=== PATIENT | male | born 1965 | race African-American/Black ===

== ENCOUNTER 2018-06-26 05:35 | Day surgery (SDC) | payer OTHER ==
[~2018-06-26] VITALS: Ht 182.9 cm; Wt 103.4 kg
[~2018-06-26 05:35] MED LIST: ADDERALL 15 MG15 MG PO; ALEVE220 MG PO; PROBIOTIC1 EAC1 PO; VITAMIN D1000 UNI1 PO
[2018-06-26 09:53] VITALS: BP 122/99
[2018-06-26 13:02] VITALS: BP 122/99
--- NOTE | 2018-06-27 06:37 | O ---
[address] [address] OPERATIVE REPORT Name: CARRIONGHADA Room #: DEP [facility].#: [id number] Admission: 06/26/18 ������������������ Attend Phys: Amado Russell MD Discharge: 06/26/18 ������������������ Date of : 67 Report #: [id number] THIS REPORT FOR: //name// CC: Ninoska Russell DATE OF SERVICE: 06/26/2018 SERVICE: Orthopedics. FACILITY: [facility]. SURGEON: Amado Russell MD CUT OFF WORKER: None. PREOPERATIVE DIAGNOSES: 1. Right shoulder pain. 2. Right shoulder rotator cuff tear. 3. Right shoulder biceps tendinitis. 4. Right shoulder impingement syndrome. 5. Right shoulder acromioclavicular joint arthrosis. POSTOPERATIVE DIAGNOSES: 1. Right shoulder pain. 2. Right shoulder rotator cuff tear. 3. Right shoulder biceps tendinitis. 4. Right shoulder impingement syndrome. 5. Right shoulder acromioclavicular joint arthrosis. PROCEDURES: 1. Right shoulder arthroscopic biceps tenodesis. 2. Right shoulder arthroscopic subacromial decompression/acromioplasty. 3. Right shoulder arthroscopic distal clavicle excision. 4. Extensive arthroscopic debridement, right shoulder. COMPLICATIONS: None. DRAINS: None. SPECIMENS: None. ANESTHESIA TYPE: General with regional. FINDINGS: 1. Low-grade partial thickness undersurface tearing of the infraspinatus, but [address] [address] OPERATIVE REPORT Name: GHADA CARRION Room #: DEP [facility].#: [id number] Admission: 06/26/18 ������������������ Attend Phys: Amado Russell MD Discharge: 06/26/18 ������������������ Date of : 67 Report #: [id number] intact supraspinatus and subscapularis. 2. Inflammation of the biceps tendon within the sheath as well as at the superior labral attachment with rotator interval synovitis treated with biceps tenodesis. HISTORY: The patient is a 53-year-old right-hand dominant gentleman. He is an active athlete, plays tennis and golf in particular. 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 He had tried extensive conservative measures including rest, activity modification, injections, oral medicine therapy, all without sufficient relief. He elected to undergo surgical treatment to address the underlying structural issues after risks, benefits, alternatives and indications for surgery were discussed with him in detail. Risks include but not limited to pain, bleeding, infection, injury to nerves or blood vessels, persistent pain despite surgical treatment, progression of any preexisting chondral injury, stiffness, need for further surgery, complications related to anesthesia such as stroke, heart attack, pulmonary complications, thromboembolic disease and . Despite these risks, he wished to proceed. PROCEDURE IN DETAIL: After right upper extremity was correctly identified in the preoperative holding area as the operative extremity and placement of a single shot regional nerve block by Anesthesia, was then taken to Operating Room where general anesthesia was induced without complications. He was seated in beach chair position with the right side then prepped and draped in a sterile fashion. Time-out procedure was performed. Prophylactic antibiotics were then administered at appropriate time. Standard posterior viewing portal was established. Diagnostic arthroscopy initially revealed significant amount of proliferative synovitis within the rotator interval. The subscapularis was normal. The biceps tendon had the above findings with erythema within the groove as well as some involvement in the biceps insertion at the superior labrum. There was some tearing of the labrum anteriorly as well as superiorly and posterior superiorly. This was treated with a thorough debridement with the shaver. There was some inflammation on the undersurface of the rotator cuff along the posterior aspect of the infraspinatus where there was fraying present, likely due to a peel-back type of injury from his overhead athletics. I utilized a shaver to perform a limited debridement of the infraspinatus in this location and then placed the scope anteriorly and the shaver posteriorly to allow access to the far posterior fibers of the undersurface fraying. It was debrided to a stable perimeter. Scope was then placed in subacromial space where there was noted to be a fair amount of subacromial bursitis, which was treated with debridement with the shaver. The biceps tendon had been pinned with an 18-gauge spinal needle. When the scope was intra-articular and number one PDS had also been utilized to tack the location of the undersurface infraspinatus tear to localize the same [address] [address] OPERATIVE REPORT Name: GHADA CARRION Room #: DEP [facility] Jes#: [id number] Admission: 06/26/18 ������������������ Attend Phys: Amado Russell MD Discharge: 06/26/18 ������������������ Date of : 67 Report #: [id number] location from the bursal side. The biceps was tenotomized for later tenodesis. The scope in the subacromial space and the bursectomy completed, the PDS was seen to traverse the rotator cuff with a normal rotator cuff tissue throughout. There was no evidence of bursal-sided tearing and so no cuff repair was necessitated. The bicipital groove was then opened and the groove was then prepared to fresh surface for tenodesis. An awl was used to create a small microfracture technique within the groove to generate bleeding surface for healing and then a [employer] Multifix suture anchor was used for fixation. The tendon was delivered out of a percutaneous stab incision and then [employer] suture tape was used for the tenodesis. A cinch- locking suture was passed through and then around the tendon. The second one was placed again around and then the Multifix anchor was used to securely fix the biceps within the bicipital groove. One limb was then passed back through the biceps tendon and then the two tails were tied upon themselves again to reinforce the tenodesis. The tendon stump was then resected. Shaver was then used to debride the frayed tissue on the undersurface of the acromion secondary to the impingement and then a posterior cutting block technique was utilized to perform a subacromial decompression and acromioplasty and then the acromioclavicular joint was visualized and an arthroscopic distal clavicle excision performed in the standard fashion with care taken to ensure resection of the posterior and superior cortices while preserving the capsule. The bony debris was lavaged out of the shoulder. Instruments were removed. Portal sites were closed. Sterile dressing was applied followed by a splint. The patient was awakened from Anesthesia and taken to recovery room in stable condition. No complications. All counts reported correct. Plan will be for 4 weeks of sling immobilization to protect biceps tenodesis with limited active biceps motions for at least 6 weeks. ��������������������������������������������� <ELECTRONICALLY SIGNED> ���������������������������������������� By: Amado Russell MD ��������������������������������������������� 06/27/18 [id number] [id number] Amado Russell MD /morris
== END 2018-06-26 14:05 | disposition home or self-care (01) ==
LOC: OR 05:35 → TBA 05:35 → OR 08:32
DX: M19.011 Primary osteoarthritis, right shoulder (principal); M75.21 Bicipital tendinitis, right shoulder; M75.41 Impingement syndrome of right shoulder; M75.101 Unspecified rotator cuff tear or rupture of right shoulder, not specified as traumatic; J45.909 Unspecified asthma, uncomplicated; Z98.890 Other specified postprocedural states; Z79.899 Other long term (current) drug therapy
CPT/HCPCS: 50010; 50101; 50172; 50386; 50417; 50733; 50935; 50950; 51320; 51445; 52001; 52313; 54170; 55430; 56525; 56527; 56617; 57103; 57128; 62110; 62900; 65130; 70005